=== PATIENT | female | born 1960 | race Caucasian/White ===

== ENCOUNTER 2020-10-17 07:36 | Emergency (ER) | payer BC, OTHER ==
[2020-10-17 07:50] VITALS: BP 121/82; PULSE 105; TEMP 97; BMI 22.6
[2020-10-17] MEDS ORDERED: DIPHTH,PERTUSS(ACELL),TET 0.5 ML DISP.SYRIN IM ONE ×2 (08:30→08:42)
== END 2020-10-17 10:47 | disposition home or self-care (01) ==
LOC: JER 07:36
PROC: 0HQ0XZZ Repair Scalp Skin, External Approach (ICD-10-PCS; principal; 2020-10-17)
PROC: 3E0234Z Introduction of Serum, Toxoid and Vaccine into Muscle, Percutaneous Approach (ICD-10-PCS; 2020-10-17)
DX: S01.82XA Laceration with foreign body of other part of head, initial encounter (principal)
CPT/HCPCS: 70450-TC; 90715; 99284-25